=== PATIENT | female | born 1990 | race American Indian/Alaskan Native ===

== ENCOUNTER 2016-12-07 00:55 | Emergency (ER) | payer SELFPAY ==
[2016-12-07] MEDS ORDERED: TYLENOL ONE (01:35)
[2016-12-07] MEDS ORDERED: TYLENOL PO ONE (01:58)
[2016-12-07 02:04] VITALS: BP 159/101
== END 2016-12-07 02:54 | disposition left against medical advice (07) ==
LOC: ED 00:55
DX: M79.604 Pain in right leg (principal); Z53.21 Procedure and treatment not carried out due to patient leaving prior to being seen by health care provider